=== PATIENT | male | born 1940 | race Caucasian/White ===

== ENCOUNTER → 2016-05-25 | Outpatient (CLI) | payer MEDICARE, OTHER ==
[~2016-05-25] MED LIST: ALEVE 220MG220 MG PO; AMBIEN 10MG10 MG PO; ANTIVERT 25MG25 MG PO; CARDIZEM120 MG PO; CORDARONE200 MG/TAB PO; COREG 25MG25 MG/TAB PO; COREG12.5 MG PO; DEMADEX 20MG20 M1 PO; ELIQUIS 2.5 PO; ELIQUIS 5MG PO; FERROUS SU325 MG/TAB PO; IRON TABLETS325 MG PO; KLOR-CON M2020 MEQ PO; LEVOXYL0.125 MG PO; LIPITOR 10MG10 MG PO; MAG-AL LIQUID 230 ML PO; MILK OF MA400 MG/52 PO; MULTI VITAMINS1 TAB PO; PACERONE400 MG PO; PRINIVIL10 MG PO; PRINIVIL20 MG PO; PROTONIX 40MG T40 MG PO; REQUIP 0.5MG0.5 MG PO; RT ADVAIR 228 DISKUS IH; TAZTIA120; TAZTIA120 PO; VITAMIN C500 MG PO; VITAMINC500CH PO; ZEBETA10 MG PO; ZYLOPRIM 100MG100 MG PO
== END ==
LOC: COL.RAD 10:19
DX: M25.511 Pain in right shoulder (principal); M19.011 Primary osteoarthritis, right shoulder
CPT/HCPCS: J3301

== ENCOUNTER 2016-07-24 10:21 | Inpatient (IN) | payer MEDICARE, OTHER ==
[~2016-07-24] VITALS: Ht 175.3 cm; Wt 104.5 kg
[2016-07-24] VITALS (319 sets, daily range): BP systolic 124–136; BP diastolic 80–89; PULSE 69–70; TEMP 98.3–98.7; O2SAT 75–100
[~2016-07-24 10:21] MED LIST changes: -COREG12.5 MG PO; -ELIQUIS 2.5 PO; -IRON TABLETS325 MG PO; -MILK OF MA400 MG/52 PO; -PRINIVIL10 MG PO; -REQUIP 0.5MG0.5 MG PO; -RT ADVAIR 228 DISKUS IH; -TAZTIA120; -VITAMIN C500 MG PO; -ZEBETA10 MG PO
[2016-07-24 11:04] LABS: BASO # 0.1 (0.0-0.2); BASO % 0.7 % (0.0-2.0); EOS # 0.3 (0.0-0.7); EOS % 4.6 % (0-4.0); GRAN # 5.1 (1.4-6.5); GRAN % 70.2 % (42.2-75.2); LYMPH # 0.9 (1.2-3.4); LYMPH % 12.5 % (20.0-51.0); MEAN CELL VOLUME 90 fl (80.0-100.0); MEAN CORPUSCULAR HGB CONC 32 g/dl (33.0-37.0); MEAN PLATELET VOLUME 9.3 fl (7.4-10.4); MONO # 0.8 (0.1-0.6); MONO % 11.7 % (1.7-9.3); PLATELET COUNT 220 K/mm3 (130-400); RED BLOOD COUNT 3.62 M/mm3 (4.20-5.60); REDCELL DISTRIBUTION WIDTH-CV 16.7 % (11.5-14.5); WHITE BLOOD COUNT 7.2 K/mm3 (4.8-10.8)
[2016-07-24 11:05] LABS: HEMATOCRIT 32.6 % (42.0-52.0); HEMOGLOBIN 10.3 g/dl (13.5-18.0); MEAN CORPUSCULAR HEMOGLOBIN 28 pg (27.0-31.0)
[2016-07-24 11:10] LABS: ADJUSTED CALCIUM 9.1 mg/dL (8.4-10.2); ALBUMIN 3.7 gm/dL (3.5-5.0); BILIRUBIN,TOTAL 0.9 mg/dL (0.0-1.0); CALCIUM 8.9 mg/dL (8.4-10.2); CREATININE, serum 1.6 mg/dL (0.66-1.25); POTASSIUM 4.2 mmol/L (3.4-5.0); TOTAL PROTEIN 6.6 gm/dL (6.4-8.2)
[2016-07-24 11:22] LABS: INR 1.8 (0.8-3.0); PROTHROMBIN TIME 20.7 SECONDS (9.7-12.8); TROPONIN-I 0.027 ng/mL (0.000-0.034)
[2016-07-24 11:25] LABS: PARTIAL THROMBOPLASTIN TIME 45.3 SECONDS (26.0-37.0)
[2016-07-24] MEDS ORDERED: TAZTIA120 (12:09)
[2016-07-24] MEDS ORDERED: ELIQUIS 5MG PO (12:51)
[2016-07-24] MEDS ORDERED: RT ADVAIR 228 DISKUS IH (12:51)
[2016-07-24] MEDS ORDERED: IRON TABLETS325 MG PO (17:38)
[2016-07-24] MEDS ORDERED: REQUIP 0.5MG0.5 MG PO (17:39)
[2016-07-25] VITALS (483 sets, daily range): BP systolic 104–131; BP diastolic 62–81; PULSE 69–80; TEMP 97.7–98.7; O2SAT 75–100
[2016-07-25 06:08] LABS: BASO % 0.4 % (0.0-2.0); EOS # 0.3 (0.0-0.7); EOS % 3.5 % (0-4.0); GRAN # 5.5 (1.4-6.5); GRAN % 70.1 % (42.2-75.2); LYMPH # 1.1 (1.2-3.4); LYMPH % 14.2 % (20.0-51.0); MEAN CELL VOLUME 91 fl (80.0-100.0); MEAN CORPUSCULAR HGB CONC 31 g/dl (33.0-37.0); MEAN PLATELET VOLUME 9.2 fl (7.4-10.4); MONO # 0.9 (0.1-0.6); MONO % 11.5 % (1.7-9.3); PLATELET COUNT 228 K/mm3 (130-400); RED BLOOD COUNT 3.61 M/mm3 (4.20-5.60); REDCELL DISTRIBUTION WIDTH-CV 16.7 % (11.5-14.5); WHITE BLOOD COUNT 7.8 K/mm3 (4.8-10.8)
[2016-07-25 06:12] LABS: HEMATOCRIT 32.8 % (42.0-52.0); HEMOGLOBIN 10.2 g/dl (13.5-18.0); MEAN CORPUSCULAR HEMOGLOBIN 28 pg (27.0-31.0)
[2016-07-25 06:18] LABS: CALCIUM 8.8 mg/dL (8.4-10.2); CREATININE, serum 1.52 mg/dL (0.66-1.25); POTASSIUM 3.9 mmol/L (3.4-5.0)
[2016-07-26 00:10] VITALS: BP 134/82; PULSE 69; TEMP 97
[2016-07-26 04:41] VITALS: BP 130/70; PULSE 70; TEMP 96.9
[2016-07-26 07:22] VITALS: BP 142/95; PULSE 75; TEMP 97.8
[2016-07-26 08:08] LABS: BASO % 0.4 % (0.0-2.0); EOS # 0.3 (0.0-0.7); GRAN # 4.9 (1.4-6.5); GRAN % 67.8 % (42.2-75.2); LYMPH # 1.2 (1.2-3.4); LYMPH % 15.9 % (20.0-51.0); MEAN CELL VOLUME 89 fl (80.0-100.0); MEAN CORPUSCULAR HGB CONC 32 g/dl (33.0-37.0); MEAN PLATELET VOLUME 10.3 fl (7.4-10.4); MONO # 0.8 (0.1-0.6); MONO % 11.6 % (1.7-9.3); PLATELET COUNT 192 K/mm3 (130-400); RED BLOOD COUNT 3.76 M/mm3 (4.20-5.60); REDCELL DISTRIBUTION WIDTH-CV 16.2 % (11.5-14.5); WHITE BLOOD COUNT 7.2 K/mm3 (4.8-10.8)
[2016-07-26 08:09] LABS: HEMATOCRIT 33.5 % (42.0-52.0); HEMOGLOBIN 10.7 g/dl (13.5-18.0); MEAN CORPUSCULAR HEMOGLOBIN 28 pg (27.0-31.0)
[2016-07-26 08:19] LABS: CALCIUM 8.7 mg/dL (8.4-10.2); CREATININE, serum 1.58 mg/dL (0.66-1.25); POTASSIUM 3.5 mmol/L (3.4-5.0)
[2016-07-26 11:17] VITALS: BP 126/67; PULSE 69; TEMP 98.7
[2016-07-26 16:44] VITALS: BP 149/90; PULSE 70; TEMP 97.3
[2016-07-26 20:41] VITALS: BP 134/79; PULSE 70; TEMP 98
[2016-07-27 01:07] VITALS: BP 124/72; PULSE 74; TEMP 97.5
[2016-07-27 04:50] VITALS: BP 130/63; PULSE 70; TEMP 98
[2016-07-27 06:59] LABS: BASO # 0.1 (0.0-0.2); BASO % 0.7 % (0.0-2.0); EOS # 0.5 (0.0-0.7); EOS % 6.2 % (0-4.0); GRAN # 4.8 (1.4-6.5); LYMPH # 1.1 (1.2-3.4); LYMPH % 15.6 % (20.0-51.0); MEAN CELL VOLUME 90 fl (80.0-100.0); MEAN CORPUSCULAR HGB CONC 31 g/dl (33.0-37.0); MEAN PLATELET VOLUME 9.1 fl (7.4-10.4); MONO # 0.8 (0.1-0.6); MONO % 11.2 % (1.7-9.3); PLATELET COUNT 230 K/mm3 (130-400); RED BLOOD COUNT 3.81 M/mm3 (4.20-5.60); REDCELL DISTRIBUTION WIDTH-CV 15.9 % (11.5-14.5); WHITE BLOOD COUNT 7.2 K/mm3 (4.8-10.8)
[2016-07-27 07:23] LABS: CALCIUM 8.9 mg/dL (8.4-10.2); CREATININE, serum 1.48 mg/dL (0.66-1.25); POTASSIUM 3.4 mmol/L (3.4-5.0)
[2016-07-27 07:24] LABS: HEMATOCRIT 34.2 % (42.0-52.0); HEMOGLOBIN 10.7 g/dl (13.5-18.0); MEAN CORPUSCULAR HEMOGLOBIN 28 pg (27.0-31.0)
[2016-07-27 08:28] VITALS: BP 121/67; PULSE 70; TEMP 98
[2016-07-27] MEDS ORDERED: ELIQUIS 2.5 PO (11:21)
[2016-07-27] MEDS ORDERED: COREG12.5 MG PO (11:21)
[2016-07-27] MEDS ORDERED: PRINIVIL10 MG PO (11:22)
[2016-07-27 11:31] VITALS: BP 134/83; PULSE 69; TEMP 98.1
== END 2016-07-27 13:45 | disposition home health service (06) | DRG 291 ==
LOC: COL.ER 10:21 → IMCU 12:16 → MEDICAL 12:16 → IMCU 07-25 10:14 → MEDICAL 07-25 11:09
PROVIDERS: Emergency Medicine; Internal Medicine Cardiovascular Disease
DX: I13.0 Hypertensive heart and chronic kidney disease with heart failure and stage 1 through stage 4 chronic kidney disease, or unspecified chronic kidney disease (principal); I50.23 Acute on chronic systolic (congestive) heart failure; N18.3 Chronic kidney disease, stage 3 (moderate); I48.0 Paroxysmal atrial fibrillation; E78.5 Hyperlipidemia, unspecified; K21.9 Gastro-esophageal reflux disease without esophagitis; E03.9 Hypothyroidism, unspecified; I42.9 Cardiomyopathy, unspecified; D64.9 Anemia, unspecified; Z95.810 Presence of automatic (implantable) cardiac defibrillator
CPT/HCPCS: 99231-AI; 99239; A4315; J1940

== ENCOUNTER 2016-10-08 11:16 | Inpatient (IN) | payer MEDICARE, OTHER ==
[~2016-10-08] VITALS: Ht 175.3 cm; Wt 105.6 kg
[~2016-10-08 11:16] MED LIST changes: +COREG12.5 MG PO; +ELIQUIS 2.5 PO; +IRON TABLETS325 MG PO; +PRINIVIL10 MG PO; +REQUIP 0.5MG0.5 MG PO; +RT ADVAIR 228 DISKUS IH; +TAZTIA120
[2016-10-08] MEDS ORDERED: MILK OF MA400 MG/52 PO (12:56)
[2016-10-08] MEDS ORDERED: ALEVE 220MG220 MG PO (12:57)
[2016-10-08] MEDS ORDERED: DEMADEX 20MG20 M1 PO (13:02)
[2016-10-08] MEDS ORDERED: VITAMIN C500 MG PO (13:03)
[2016-10-08 13:15] LABS: BASO # 0.1 (0.0-0.2); BASO % 0.6 % (0.0-2.0); EOS # 0.3 (0.0-0.7); EOS % 3.5 % (0-4.0); GRAN # 6.2 (1.4-6.5); GRAN % 70.2 % (42.2-75.2); LYMPH % 10.9 % (20.0-51.0); MEAN CELL VOLUME 92 fl (80.0-100.0); MEAN CORPUSCULAR HGB CONC 31 g/dl (33.0-37.0); MEAN PLATELET VOLUME 9.4 fl (7.4-10.4); MONO # 1.3 (0.1-0.6); MONO % 14.4 % (1.7-9.3); PLATELET COUNT 216 K/mm3 (130-400); RED BLOOD COUNT 3.66 M/mm3 (4.20-5.60); REDCELL DISTRIBUTION WIDTH-CV 16.7 % (11.5-14.5); WHITE BLOOD COUNT 8.9 K/mm3 (4.8-10.8)
[2016-10-08 13:20] LABS: ADJUSTED CALCIUM 8.7 mg/dL (8.4-10.2); ALBUMIN 3.7 gm/dL (3.5-5.0); BILIRUBIN,TOTAL 1.1 mg/dL (0.0-1.0); C-REACTIVE PROTEIN 2.1 mg/dL (0.0-0.9); CALCIUM 8.5 mg/dL (8.4-10.2); CREATININE, serum 1.6 mg/dL (0.66-1.25); PARTIAL THROMBOPLASTIN TIME 41.6 SECONDS (26.0-37.0); POTASSIUM 3.9 mmol/L (3.4-5.0); TOTAL PROTEIN 6.3 gm/dL (6.4-8.2)
[2016-10-08 13:21] LABS: HEMATOCRIT 33.6 % (42.0-52.0); HEMOGLOBIN 10.5 g/dl (13.5-18.0); MEAN CORPUSCULAR HEMOGLOBIN 29 pg (27.0-31.0)
[2016-10-08 13:23] LABS: INR 1.5 (0.8-3.0); PROTHROMBIN TIME 16.5 SECONDS (9.7-12.8)
[2016-10-08 13:37] LABS: TROPONIN-I 0.035 ng/mL (0.000-0.034)
[2016-10-08 13:39] LABS: PH 7 (5-8); SQUAMOUS EPITHELIAL None Seen /hpf; URINE APPEARANCE Clear; URINE BACTERIA None Seen /hpf; URINE BILIRUBIN Negative (NEGATIVE); URINE BLOOD Negative (NEGATIVE); URINE COLOR Straw; URINE GLUCOSE Negative (NEGATIVE); URINE KETONE Negative (NEGATIVE); URINE RBC 0-2 /hpf; URINE UROBILINOGEN Negative (NEGATIVE); URINE WBC 0-2 /hpf
[2016-10-08 15:36] VITALS: BP 134/79; PULSE 72; TEMP 97.2
[2016-10-08 15:37] VITALS: BP 134/79; PULSE 70; TEMP 97.2
[2016-10-08 19:42] VITALS: BP 116/64; PULSE 72; TEMP 97.8
[2016-10-09] VITALS (7 sets, daily range): BP systolic 112–138; BP diastolic 54–95; PULSE 64–95; TEMP 97.9–98.8
[2016-10-09 06:37] LABS: ADD PATHOLOGY DIFF REVIEW NO
[2016-10-09 06:51] LABS: MEAN CELL VOLUME 91 fl (80.0-100.0); MEAN CORPUSCULAR HGB CONC 31 g/dl (33.0-37.0); MEAN PLATELET VOLUME 9.4 fl (7.4-10.4); PLATELET COUNT 210 K/mm3 (130-400); REDCELL DISTRIBUTION WIDTH-CV 16.9 % (11.5-14.5); WHITE BLOOD COUNT 6.3 K/mm3 (4.8-10.8)
[2016-10-09 06:52] LABS: HEMATOCRIT 33.8 % (42.0-52.0); HEMOGLOBIN 10.5 g/dl (13.5-18.0); MEAN CORPUSCULAR HEMOGLOBIN 28 pg (27.0-31.0)
[2016-10-09 07:18] LABS: CALCIUM 8.3 mg/dL (8.4-10.2); CREATININE, serum 1.69 mg/dL (0.66-1.25); MAGNESIUM 2.2 mg/dL (1.6-2.3); POTASSIUM 3.4 mmol/L (3.4-5.0)
[2016-10-09 07:39] LABS: BAND 3 % (0-10); BASOPHIL 1 % (0-2); EOSINOPHIL 4 % (0-4); NEUTROPHILS 71 % (42.0-75.2); TOTAL CELLS COUNTED 100
[2016-10-09 07:40] LABS: PLATELET ESTIMATE NORMAL (NORMAL)
[2016-10-09 07:41] LABS: TROPONIN-I 0.044 ng/mL (0.000-0.034)
[2016-10-10 05:30] VITALS: BP 109/75; PULSE 66; TEMP 97.6
[2016-10-10 07:56] LABS: CALCIUM 8.3 mg/dL (8.4-10.2); CREATININE, serum 1.58 mg/dL (0.66-1.25); POTASSIUM 3.4 mmol/L (3.4-5.0)
[2016-10-10 08:54] VITALS: BP 111/61; PULSE 71; TEMP 97.5
[2016-10-10] MEDS ORDERED: CORDARONE200 MG/TAB PO (10:50)
[2016-10-10] MEDS ORDERED: COREG 25MG25 MG/TAB PO (10:50)
[2016-10-10] MEDS ORDERED: DEMADEX 20MG20 M1 PO (10:58)
== END 2016-10-10 15:22 | disposition home or self-care (01) | DRG 293 ==
LOC: COL.ER 11:16 → MEDICAL 14:00
PROVIDERS: Emergency Medicine; Internal Medicine; Internal Medicine Cardiovascular Disease
DX: I11.0 Hypertensive heart disease with heart failure (principal); I50.23 Acute on chronic systolic (congestive) heart failure; I48.0 Paroxysmal atrial fibrillation; I42.9 Cardiomyopathy, unspecified; R53.81 Other malaise; I13.0 Hypertensive heart and chronic kidney disease with heart failure and stage 1 through stage 4 chronic kidney disease, or unspecified chronic kidney disease; N18.9 Chronic kidney disease, unspecified; Z79.01 Long term (current) use of anticoagulants; Z95.810 Presence of automatic (implantable) cardiac defibrillator
CPT/HCPCS: 99222-AI; 99232-AI; 99239; J0696; J1940

== ENCOUNTER → 2016-12-16 | Outpatient (CLI) | payer MEDICARE, OTHER ==
[~2016-12-16] MED LIST changes: +MILK OF MA400 MG/52 PO; +VITAMIN C500 MG PO; +ZEBETA10 MG PO
== END ==
LOC: COL.RAD 11:08
DX: M19.011 Primary osteoarthritis, right shoulder (principal); M25.711 Osteophyte, right shoulder; M75.121 Complete rotator cuff tear or rupture of right shoulder, not specified as traumatic; M62.511 Muscle wasting and atrophy, not elsewhere classified, right shoulder; M75.81 Other shoulder lesions, right shoulder; R60.0 Localized edema

== ENCOUNTER 2017-01-25 07:25 | Day surgery (SDC) | payer MEDICARE, OTHER ==
[~2017-01-25] VITALS: Ht 170.3 cm; Wt 98.0 kg
[2017-01-25] VITALS (11 sets, daily range): BP systolic 116–149; BP diastolic 69–94; PULSE 53–72; TEMP 97.9
[~2017-01-25 07:25] MED LIST changes: -ZEBETA10 MG PO
[2017-01-25 08:30] LABS: HEMATOCRIT 37.3 % (42.0-52.0); MEAN CELL VOLUME 88 fl (80.0-100.0); MEAN CORPUSCULAR HEMOGLOBIN 28 pg (27.0-31.0); MEAN CORPUSCULAR HGB CONC 32 g/dl (33.0-37.0); MEAN PLATELET VOLUME 8.9 fl (7.4-10.4); PLATELET COUNT 240 K/mm3 (130-400); RED BLOOD COUNT 4.22 M/mm3 (4.20-5.60); REDCELL DISTRIBUTION WIDTH-CV 16.6 % (11.5-14.5); WHITE BLOOD COUNT 8.3 K/mm3 (4.8-10.8)
[2017-01-25 08:33] LABS: HEMOGLOBIN 11.9 g/dl (13.5-18.0)
[2017-01-25 08:34] LABS: INR 1.1 (0.8-3.0); PROTHROMBIN TIME 12.2 SECONDS (9.7-12.8)
[2017-01-25 08:45] LABS: CALCIUM 9.1 mg/dL (8.4-10.2); CREATININE, serum 1.74 mg/dL (0.66-1.25); POTASSIUM 3.7 mmol/L (3.4-5.0)
[2017-01-25] MEDS ORDERED: PRINIVIL20 MG PO (08:49)
[2017-01-25] MEDS ORDERED: ZEBETA10 MG PO (08:59)
== END 2017-01-25 16:00 | disposition home or self-care (01) ==
LOC: COL.CAR 07:25
PROVIDERS: Internal Medicine Cardiovascular Disease
DX: I42.8 Other cardiomyopathies (principal); I27.2 Other secondary pulmonary hypertension; I11.0 Hypertensive heart disease with heart failure; R07.9 Chest pain, unspecified; I48.91 Unspecified atrial fibrillation; I08.0 Rheumatic disorders of both mitral and aortic valves; I12.9 Hypertensive chronic kidney disease with stage 1 through stage 4 chronic kidney disease, or unspecified chronic kidney disease; N18.9 Chronic kidney disease, unspecified; D63.1 Anemia in chronic kidney disease; J44.9 Chronic obstructive pulmonary disease, unspecified; I25.10 Atherosclerotic heart disease of native coronary artery without angina pectoris; E87.70 Fluid overload, unspecified; M10.9 Gout, unspecified; E78.5 Hyperlipidemia, unspecified; E03.9 Hypothyroidism, unspecified; G47.33 Obstructive sleep apnea (adult) (pediatric); M19.90 Unspecified osteoarthritis, unspecified site; H91.90 Unspecified hearing loss, unspecified ear; M43.07 Spondylolysis, lumbosacral region; Z85.828 Personal history of other malignant neoplasm of skin; Z96.659 Presence of unspecified artificial knee joint; Z80.9 Family history of malignant neoplasm, unspecified; M25.519 Pain in unspecified shoulder
CPT/HCPCS: A9270-GY; C1760; C1894; J1940; J2250; J3010; Q9967

== ENCOUNTER 2017-01-27 08:29 | Day surgery (SDC) | payer MEDICARE, OTHER ==
[2017-01-27] VITALS (9 sets, daily range): BP systolic 95–131; BP diastolic 55–87; PULSE 69–76; TEMP 97–98.2
[~2017-01-27] VITALS: Ht 175.4 cm; Wt 100.0 kg
[~2017-01-27 08:29] MED LIST changes: +ZEBETA10 MG PO
[2017-01-28 00:15] VITALS: BP 103/56; PULSE 69; TEMP 97.7
[2017-01-28 05:29] VITALS: BP 136/87; PULSE 69; TEMP 97.6
[2017-01-28 07:15] VITALS: BP 121/81; PULSE 69; TEMP 97.6
== END 2017-01-28 12:10 | disposition home or self-care (01) ==
LOC: COL.CAR 08:29 → MEDICAL 12:46 → COL.CAR 01-28 12:10
DX: I42.9 Cardiomyopathy, unspecified (principal); J44.9 Chronic obstructive pulmonary disease, unspecified; I25.10 Atherosclerotic heart disease of native coronary artery without angina pectoris; I13.0 Hypertensive heart and chronic kidney disease with heart failure and stage 1 through stage 4 chronic kidney disease, or unspecified chronic kidney disease; N18.9 Chronic kidney disease, unspecified; E78.5 Hyperlipidemia, unspecified; E03.9 Hypothyroidism, unspecified; D50.9 Iron deficiency anemia, unspecified; I34.0 Nonrheumatic mitral (valve) insufficiency; G47.33 Obstructive sleep apnea (adult) (pediatric); M19.90 Unspecified osteoarthritis, unspecified site; I47.2 Ventricular tachycardia; I48.0 Paroxysmal atrial fibrillation; I50.22 Chronic systolic (congestive) heart failure; Z96.653 Presence of artificial knee joint, bilateral; Z95.0 Presence of cardiac pacemaker; Z95.818 Presence of other cardiac implants and grafts; Z85.828 Personal history of other malignant neoplasm of skin; Z82.61 Family history of arthritis; Z82.3 Family history of stroke; Z82.49 Family history of ischemic heart disease and other diseases of the circulatory system
CPT/HCPCS: OP; C1769; C1882; C1900; J0690; J2250; J3010; J7030; Q9967

== ENCOUNTER → 2017-02-12 | Outpatient (CLI) | payer MEDICARE, OTHER | LOC: COL.RAD 11:17 | DX: M25.511 Pain in right shoulder (principal) | CPT/HCPCS: J3301; Q9967 ==

== ENCOUNTER 2017-07-05 18:30 | Emergency (ER) | payer MEDICARE, OTHER ==
[2017-07-05 18:40] VITALS: TEMP 98.7
[2017-07-05 19:20] LABS: BASO # 0.1 (0.0-0.2); BASO % 0.7 % (0.0-2.0); EOS % 0.4 % (0-4.0); GRAN % 80.8 % (42.2-75.2); HEMATOCRIT 37.3 % (42.0-52.0); HEMOGLOBIN 12.1 g/dl (13.5-18.0); LYMPH # 0.7 (1.2-3.4); LYMPH % 6.8 % (20.0-51.0); MEAN CELL VOLUME 92 fl (80.0-100.0); MEAN CORPUSCULAR HEMOGLOBIN 30 pg (27.0-31.0); MEAN CORPUSCULAR HGB CONC 32 g/dl (33.0-37.0); MEAN PLATELET VOLUME 9.3 fl (7.4-10.4); MONO # 1.1 (0.1-0.6); PLATELET COUNT 189 K/mm3 (130-400); RED BLOOD COUNT 4.04 M/mm3 (4.20-5.60); REDCELL DISTRIBUTION WIDTH-CV 15.5 % (11.5-14.5)
[2017-07-05 19:43] LABS: ALBUMIN 4.2 gm/dL (3.5-5.0); BILIRUBIN,TOTAL 0.6 mg/dL (0.0-1.0); CALCIUM 8.9 mg/dL (8.4-10.2); CREATININE, serum 1.62 mg/dL (0.66-1.25); POTASSIUM 4.1 mmol/L (3.4-5.0); TOTAL PROTEIN 6.8 gm/dL (6.4-8.2)
[2017-07-05] MEDS ORDERED: ENTRESTO 49 MG1 EACH PO (19:49)
[2017-07-05] MEDS ORDERED: VOLTAREN GEL 1%1 TU TP (19:50)
[2017-07-05 19:52] LABS: ARTERIAL BLD GAS O2 SATURATION 98.7 % (92-100); ARTERIAL BLD GAS TCO2 CT 25.2; ARTERIAL BLOOD GAS BASE EXCESS 1.3 (-2-2); ARTERIAL BLOOD GAS HCO3 24.2 meq/L (22-26); ARTERIAL BLOOD GAS PCO2 32.5 mmHg (35-45); ARTERIAL BLOOD GAS pH 7.49 (7.35-7.45)
[2017-07-05 19:53] LABS: ARTERIAL BLOOD GAS PO2 180.4 mmHg (80-100)
[2017-07-05 19:54] LABS: TROPONIN-I 0.027 ng/mL (0.000-0.034)
[2017-07-05] MEDS ORDERED: TAMIFLU 75MG75 MG PO (20:45)
[2017-07-05 21:14] VITALS: BP 123/67; PULSE 69
[2017-07-05 21:16] LABS: COLLECTION METHOD CLEAN CATCH
[2017-07-05 21:29] LABS: PH 6 (5-8); URINE APPEARANCE Clear; URINE BILIRUBIN Negative (NEGATIVE); URINE BLOOD Negative (NEGATIVE); URINE COLOR Yellow; URINE GLUCOSE Negative (NEGATIVE); URINE KETONE Negative (NEGATIVE); URINE LEUKOCYTE ESTERASE Negative (NEGATIVE); URINE NITRATE Negative (NEGATIVE); URINE PROTEIN(semi-quant) Negative (NEGATIVE); URINE UROBILINOGEN Negative (NEGATIVE)
[2017-07-05 21:30] LABS: SQUAMOUS EPITHELIAL 0-2 /hpf; URINE RBC None Seen /hpf
== END 2017-07-05 21:15 | disposition home or self-care (01) ==
LOC: COL.ER 18:30
PROVIDERS: Family Medicine
DX: J10.1 Influenza due to other identified influenza virus with other respiratory manifestations (principal); I11.0 Hypertensive heart disease with heart failure; I50.9 Heart failure, unspecified; I48.91 Unspecified atrial fibrillation; Z95.0 Presence of cardiac pacemaker; Z87.891 Personal history of nicotine dependence; Z79.01 Long term (current) use of anticoagulants
CPT/HCPCS: J1940; J2930

== ENCOUNTER 2018-01-25 08:03 | Inpatient (IN) | payer MEDICARE, OTHER ==
[~2018-01-25] VITALS: Ht 175.3 cm; Wt 107.5 kg
[2018-01-25] VITALS (271 sets, daily range): BP systolic 100–110; BP diastolic 62–84; PULSE 79–144; TEMP 97.6–98; O2SAT 78–99
[~2018-01-25 08:03] MED LIST changes: +ENTRESTO 49 MG1 EACH PO; +MASON NATURAL2000 IU PO; +MIRALAX PA17 GM/Dose PO; +SENNA8.6 MG PO; +TAMIFLU 75MG75 MG PO; +TYLENOL W/COD1 UDTAB PO; +VOLTAREN GEL 1%1 TU TP
[2018-01-25 08:34] LABS: BASO # 0.1 (0.0-0.2); BASO % 0.6 % (0.0-2.0); EOS # 0.2 (0.0-0.7); EOS % 1.1 % (0-4.0); GRAN # 11.6 (1.4-6.5); GRAN % 83.6 % (42.2-75.2); HEMOGLOBIN 12.6 g/dl (13.5-18.0); LYMPH % 6.8 % (20.0-51.0); MEAN CELL VOLUME 94 fl (80.0-100.0); MEAN CORPUSCULAR HEMOGLOBIN 30 pg (27.0-31.0); MEAN CORPUSCULAR HGB CONC 32 g/dl (33.0-37.0); MEAN PLATELET VOLUME 9.6 fl (7.4-10.4); MONO % 7.5 % (1.7-9.3); PLATELET COUNT 235 K/mm3 (130-400); RED BLOOD COUNT 4.25 M/mm3 (4.20-5.60); REDCELL DISTRIBUTION WIDTH-CV 16.9 % (11.5-14.5)
[2018-01-25 08:43] LABS: ALBUMIN 3.8 gm/dL (3.5-5.0); BILIRUBIN,TOTAL 0.6 mg/dL (0.0-1.0); CALCIUM 8.4 mg/dL (8.4-10.2); CREATININE, serum 1.51 mg/dL (0.66-1.25); POTASSIUM 3.3 mmol/L (3.4-5.0); TOTAL PROTEIN 6.5 gm/dL (6.4-8.2)
[2018-01-25 08:44] LABS: INR 1.3 (0.8-3.0); PROTHROMBIN TIME 15.2 SECONDS (9.7-12.8)
[2018-01-25 08:47] LABS: PARTIAL THROMBOPLASTIN TIME 41.4 SECONDS (26.0-37.0)
[2018-01-25 08:56] LABS: TROPONIN-I 0.027 ng/mL (0.000-0.034)
[2018-01-25] MEDS ORDERED: TYLENOL #4 (1 UDTAB PO (08:58)
[2018-01-25] MEDS ORDERED: MEXITIL 150MG150 MG PO (08:58)
[2018-01-25] MEDS ORDERED: PACERONE200 MG PO (09:05)
[2018-01-25] MEDS ORDERED: VOLTAREN GEL 1%1 TU TP (09:35)
[2018-01-25] MEDS ORDERED: AMBIEN 10MG10 MG PO (09:38)
[2018-01-26] VITALS (292 sets, daily range): BP systolic 95–139; BP diastolic 65–81; PULSE 59–83; TEMP 97.7–98.6; O2SAT 83–100
[2018-01-26 06:36] LABS: BASO # 0.1 (0.0-0.2); BASO % 0.3 % (0.0-2.0); EOS # 0.1 (0.0-0.7); EOS % 0.6 % (0-4.0); GRAN # 12.9 (1.4-6.5); GRAN % 85.3 % (42.2-75.2); HEMOGLOBIN 13.3 g/dl (13.5-18.0); LYMPH # 0.9 (1.2-3.4); LYMPH % 5.9 % (20.0-51.0); MEAN CELL VOLUME 96 fl (80.0-100.0); MEAN CORPUSCULAR HEMOGLOBIN 30 pg (27.0-31.0); MEAN CORPUSCULAR HGB CONC 32 g/dl (33.0-37.0); MEAN PLATELET VOLUME 9.7 fl (7.4-10.4); MONO # 1.2 (0.1-0.6); MONO % 7.6 % (1.7-9.3); PLATELET COUNT 210 K/mm3 (130-400); REDCELL DISTRIBUTION WIDTH-CV 16.9 % (11.5-14.5)
[2018-01-26 06:45] LABS: CALCIUM 8.7 mg/dL (8.4-10.2); CREATININE, serum 1.46 mg/dL (0.66-1.25); POTASSIUM 3.4 mmol/L (3.4-5.0)
[2018-01-27 00:35] VITALS: BP 118/89; PULSE 90; TEMP 98.5
[2018-01-27 06:18] LABS: COLLECTION METHOD CLEAN CATCH
[2018-01-27 06:25] LABS: MUCOUS Present /lpf; PH 5 (5-8); URINE APPEARANCE Clear; URINE BACTERIA None Seen /hpf; URINE BILIRUBIN Negative (NEGATIVE); URINE BLOOD 2+ (NEGATIVE); URINE COLOR Yellow; URINE GLUCOSE Negative (NEGATIVE); URINE KETONE Negative (NEGATIVE); URINE LEUKOCYTE ESTERASE Negative (NEGATIVE); URINE NITRATE Negative (NEGATIVE); URINE PROTEIN(semi-quant) Negative (NEGATIVE); URINE RBC 20-50 /hpf; URINE UROBILINOGEN Negative (NEGATIVE)
[2018-01-27 06:29] LABS: HYALINE CAST >12 /lpf; SQUAMOUS EPITHELIAL None Seen /hpf
[2018-01-27 07:25] VITALS: BP 115/78; PULSE 84; TEMP 98.4
[2018-01-27 07:38] LABS: BASO % 0.4 % (0.0-2.0); EOS # 0.1 (0.0-0.7); EOS % 0.6 % (0-4.0); GRAN # 6.3 (1.4-6.5); LYMPH # 0.9 (1.2-3.4); LYMPH % 10.7 % (20.0-51.0); MEAN CELL VOLUME 95 fl (80.0-100.0); MEAN CORPUSCULAR HGB CONC 32 g/dl (33.0-37.0); MONO # 0.9 (0.1-0.6); MONO % 10.8 % (1.7-9.3); PLATELET COUNT 198 K/mm3 (130-400); RED BLOOD COUNT 3.71 M/mm3 (4.20-5.60); REDCELL DISTRIBUTION WIDTH-CV 16.8 % (11.5-14.5)
[2018-01-27 07:46] LABS: HEMATOCRIT 35.1 % (42.0-52.0); HEMOGLOBIN 11.2 g/dl (13.5-18.0); MEAN CORPUSCULAR HEMOGLOBIN 30 pg (27.0-31.0)
[2018-01-27 07:56] LABS: CALCIUM 8.1 mg/dL (8.4-10.2); CREATININE, serum 1.43 mg/dL (0.66-1.25); POTASSIUM 3.3 mmol/L (3.4-5.0)
[2018-01-27 12:25] VITALS: BP 136/74; PULSE 82; TEMP 97.9
== END 2018-01-27 16:46 | disposition home or self-care (01) | DRG 309 ==
LOC: COL.ER 08:03 → MEDICAL 11:02 → ICU 16:24 → MEDICAL 01-26 16:09 → ICU 01-26 16:09 → MEDICAL 01-26 16:15
PROVIDERS: Family Medicine; Internal Medicine; Physician Assistant
DX: I47.2 Ventricular tachycardia (principal); I13.0 Hypertensive heart and chronic kidney disease with heart failure and stage 1 through stage 4 chronic kidney disease, or unspecified chronic kidney disease; I50.22 Chronic systolic (congestive) heart failure; I42.0 Dilated cardiomyopathy; I48.2 Chronic atrial fibrillation; N18.9 Chronic kidney disease, unspecified; I27.22 Pulmonary hypertension due to left heart disease; Z79.01 Long term (current) use of anticoagulants; E87.6 Hypokalemia
CPT/HCPCS: 99233-AI; G8978-GP; G8979-GP; J0282; J7060

== ENCOUNTER → 2018-06-20 | Outpatient (REF) ==
[~2018-06-20] MED LIST changes: +DEMADEX100 MG PO; +HALLS9.1 MG MM; +IPRATROPIUM BROM3 M1 IH; +K-TAB20 PO; +LINZESS145CAP PO; +MEXITIL 150MG150 MG PO; +PACERONE200 MG PO; +PREDNISONE10 MG PO; +TESSALON P100 MG/CAP PO; +TYLENOL #4 (1 UDTAB PO; +TYLENOL 325MG325 MG PO
== END ==
LOC: ZCOL.LAB 11:24
DX: I50.9 Heart failure, unspecified (principal)

== ENCOUNTER → 2018-07-04 | Outpatient (CLI) | payer MEDICARE, OTHER | LOC: COL.RAD 09:32 | DX: N18.3 Chronic kidney disease, stage 3 (moderate) (principal) ==

== ENCOUNTER 2018-08-10 12:31 | Emergency (ER) | payer MEDICARE, OTHER ==
[~2018-08-10] VITALS: Ht 170.2 cm; Wt 98.2 kg
[2018-08-10 12:33] VITALS: TEMP 96.8
[2018-08-10 13:04] LABS: BASO % 0.5 % (0.0-2.0); EOS # 0.2 (0.0-0.7); EOS % 2.3 % (0-4.0); GRAN # 7.3 (1.4-6.5); GRAN % 82.1 % (42.2-75.2); HEMOGLOBIN 10.9 g/dl (13.5-18.0); LYMPH # 0.6 (1.2-3.4); LYMPH % 6.8 % (20.0-51.0); MEAN CELL VOLUME 95 fl (80.0-100.0); MEAN CORPUSCULAR HEMOGLOBIN 30 pg (27.0-31.0); MEAN CORPUSCULAR HGB CONC 32 g/dl (33.0-37.0); MONO # 0.7 (0.1-0.6); PLATELET COUNT 219 K/mm3 (130-400); RED BLOOD COUNT 3.65 M/mm3 (4.20-5.60); REDCELL DISTRIBUTION WIDTH-CV 19.5 % (11.5-14.5)
[2018-08-10 13:06] LABS: INR 1.4 (0.8-3.0)
[2018-08-10 13:07] LABS: HEMATOCRIT 34.6 % (42.0-52.0)
[2018-08-10 13:08] LABS: ALBUMIN 3.6 gm/dL (3.5-5.0); BILIRUBIN,TOTAL 0.7 mg/dL (0.0-1.0); CALCIUM 8.7 mg/dL (8.4-10.2); CREATININE, serum 1.95 mg/dL (0.66-1.25); POTASSIUM 4.1 mmol/L (3.4-5.0); TOTAL PROTEIN 6.4 gm/dL (6.4-8.2)
[2018-08-10 13:09] LABS: PARTIAL THROMBOPLASTIN TIME 39.8 SECONDS (26.0-37.0)
[2018-08-10 13:20] LABS: TROPONIN-I 0.02 ng/mL (0.000-0.035)
[2018-08-10 16:00] VITALS: BP 102/79; PULSE 80
== END 2018-08-10 16:13 | disposition home or self-care (01) ==
LOC: COL.ER 12:31
PROVIDERS: Emergency Medicine
DX: I47.2 Ventricular tachycardia (principal); I50.9 Heart failure, unspecified; I48.91 Unspecified atrial fibrillation; Z95.0 Presence of cardiac pacemaker; Z79.01 Long term (current) use of anticoagulants

== ENCOUNTER 2018-09-12 00:46 | Emergency (ER) | payer MEDICARE, OTHER ==
[~2018-09-12] VITALS: Ht 175.3 cm; Wt 102.3 kg
[2018-09-12 00:59] VITALS: TEMP 97.4
[2018-09-12 01:24] LABS: BASO % 0.3 % (0.0-2.0); EOS % 0.2 % (0-4.0); GRAN # 10.5 (1.4-6.5); GRAN % 87.7 % (42.2-75.2); HEMOGLOBIN 10.9 g/dl (13.5-18.0); LYMPH # 0.5 (1.2-3.4); LYMPH % 4.2 % (20.0-51.0); MEAN CELL VOLUME 93 fl (80.0-100.0); MEAN CORPUSCULAR HEMOGLOBIN 29 pg (27.0-31.0); MEAN CORPUSCULAR HGB CONC 32 g/dl (33.0-37.0); MEAN PLATELET VOLUME 9.3 fl (7.4-10.4); MONO # 0.9 (0.1-0.6); MONO % 7.1 % (1.7-9.3); PLATELET COUNT 227 K/mm3 (130-400); RED BLOOD COUNT 3.71 M/mm3 (4.20-5.60); REDCELL DISTRIBUTION WIDTH-CV 18.6 % (11.5-14.5)
[2018-09-12 01:29] LABS: HEMATOCRIT 34.6 % (42.0-52.0)
[2018-09-12 01:32] LABS: INR 1.8 (0.8-3.0); PROTHROMBIN TIME 20.2 SECONDS (9.7-12.8)
[2018-09-12 01:36] LABS: ALBUMIN 3.8 gm/dL (3.5-5.0); BILIRUBIN,TOTAL 1.4 mg/dL (0.0-1.0); CALCIUM 9.4 mg/dL (8.4-10.2); CREATININE, serum 2.35 (0.66-1.25); POTASSIUM 4.7 mmol/L (3.4-5.0); TOTAL PROTEIN 6.7 gm/dL (6.4-8.2)
[2018-09-12 01:47] LABS: TROPONIN-I 0.024 ng/mL (0.000-0.035)
[2018-09-12 01:51] LABS: COLLECTION METHOD CLEAN CATCH
[2018-09-12 02:15] LABS: HYALINE CAST >12 /lpf; MUCOUS Present /lpf; PH 5 (5-8); SQUAMOUS EPITHELIAL None Seen /hpf; URINE APPEARANCE Clear; URINE BACTERIA None Seen /hpf; URINE BILIRUBIN Negative (NEGATIVE); URINE BLOOD Negative (NEGATIVE); URINE COLOR Yellow; URINE GLUCOSE Negative (NEGATIVE); URINE KETONE Negative (NEGATIVE); URINE LEUKOCYTE ESTERASE Negative (NEGATIVE); URINE NITRATE Negative (NEGATIVE); URINE PROTEIN(semi-quant) Negative (NEGATIVE); URINE RBC 0-2 /hpf; URINE UROBILINOGEN Negative (NEGATIVE)
[2018-09-12] MEDS ORDERED: TYLENOL W/COD1 UDTAB PO (02:34)
[2018-09-12] MEDS ORDERED: GENTLE LAXATIVE10 MG RC (02:39)
[2018-09-12] MEDS ORDERED: [UNRECOGNIZED DRUG - REMARK] TOP (02:41)
[2018-09-12] MEDS ORDERED: SALESE1 LOZ (02:47)
[2018-09-12] MEDS ORDERED: DEBROX OT (02:48)
[2018-09-12] MEDS ORDERED: ANTI-DIARRHEAL2 MG PO (02:51)
[2018-09-12] MEDS ORDERED: ATROVENT I0.2 MG/1 M IH (02:53)
[2018-09-12] MEDS ORDERED: MIRALAX PA17 GM/Dose PO (02:57)
[2018-09-12] MEDS ORDERED: MYLANTA 150 ML150 M1 PO (03:00)
[2018-09-12 07:00] VITALS: BP 95/70; PULSE 118
== END 2018-09-12 07:15 | disposition short-term general hospital (02) ==
LOC: COL.ER 00:46 → MEDICAL 02:20 → COL.ER 02:20 → MEDICAL 06:17
PROVIDERS: Emergency Medicine; Internal Medicine
DX: I50.9 Heart failure, unspecified (principal); E86.9 Volume depletion, unspecified; Z95.0 Presence of cardiac pacemaker
CPT/HCPCS: 99223-AI; J0282; J1940; J3475; J7050; J7060